=== PATIENT | male | born 1990 | race Caucasian/White ===

== ENCOUNTER → 2016-04-15 | Outpatient (CLI) | payer OTHER ==
[2016-04-15 15:36] LABS: FREE T4 0.97 NG/DL (0.76-1.46)
== END ==
LOC: M LAB 14:15
PROVIDERS: ATTEND Internal Medicine Endocrinology, Diabetes & Metabolism
DX: E05.00 Thyrotoxicosis with diffuse goiter without thyrotoxic crisis or storm (principal)

== ENCOUNTER → 2017-04-26 | Outpatient (REF) | payer OTHER | LOC: M LAB REF 13:51 | DX: J11.1 Influenza due to unidentified influenza virus with other respiratory manifestations (principal) ==